=== PATIENT | male | born 1950 | race Caucasian/White ===

== ENCOUNTER 2016-09-10 14:37 | Inpatient (IN) | payer MEDICARE, OTHER ==
[2016-09-10] VITALS (8 sets, daily range): BP systolic 131–161; BP diastolic 84–103
[~2016-09-10] VITALS: Ht 177.8 cm; Wt 93.2 kg
[~2016-09-10 14:37] MED LIST: ASP81TEC PO; ATOR80TA PO; DOXY-233 PO; LISI1TAB6 PO; NFNEB10T PO
--- NOTE | 2016-09-10 14:55 | Diagnostic Imaging Report ---
PROCEDURE: CT head without contrast. TECHNIQUE: Multiple contiguous axial images were obtained through the brain without the use of intravenous contrast. INDICATION: Confusion . FINDINGS: There is no intracranial hemorrhage, edema or mass effect. The brain parenchyma appears unremarkable. No hydrocephalus. The visualized portions of the orbits and paranasal sinuses appear unremarkable. IMPRESSION: Unremarkable study. Dictated by: Dictated on workstation # [id number]
[2016-09-10 14:57] LABS: BASOPHILS % (AUTO) 0 % (0-10); EOSINOPHILS % (AUTO) 0 % (0-10); LYMPHOCYTES # (AUTO) 1.3 X 10^3 (1.0-4.0); LYMPHOCYTES % (AUTO) 14 % (12-44); MEAN CORPUSCULAR HEMOGLOBIN 31 PG (25-34); MEAN CORPUSCULAR HGB CONC 35 G/DL (32-36); MEAN CORPUSCULAR VOLUME 90 FL (80-99); MEAN PLATELET VOLUME 9.2 FL (7.4-10.4); MONOCYTES # (AUTO) 0.7 X 10^3 (0.0-1.0); MONOCYTES % (AUTO) 8 % (0-12); NEUTROPHILS # (AUTO) 7.2 X 10^3 (1.8-7.8); NEUTROPHILS % (AUTO) 78 % (42-75); PLATELET COUNT 352 10^3/uL (130-400); RED BLOOD COUNT 4.86 10^6/uL (4.35-5.85); RED CELL DISTRIBUTION WIDTH 12.2 % (10.0-14.5); WHITE BLOOD COUNT 9.2 10^3/uL (4.3-11.0)
--- NOTE | 2016-09-10 14:58 | ED Neurological Problem ---
General Chief Complaint: Neuro-Stroke Like Symptoms Stated Complaint: STROKE Nursing Triage Note: PT ARRIVED VIA EMS. REPORTS GOING UNRESPONSIVE WHILE ON THE PHONE WITH SOMEONE AT 1550 AT HOME. Nursing Sepsis Screen: No Definite Risk Source: patient Exam Limitations: no limitations History of Present Illness Time seen by provider: 14:51 Initial Comments Patient was talking on the phone to someone at 1350 when the person on the other line noticed that he was not talking anymore. The person then called his coworkers who went in to check on the patient. They found the patient awake alert sitting in chair but verbally unresponsive. There was no seizure activity noted. EMS was summoned. EMS found the patient awake alert but with difficulty speaking. He wasn't moderately hypertensive in route with a blood glucose of 120. On arrival to the emergency department he is anxious but in no obvious distress. He has noted aphasia on arrival. He was emergently transported to the CT scanner. Full examination and interview were conducted when patient returned from CAT scan. Allergies and Home Medications Allergies Coded Allergies: No Known Drug Allergies (Unverified , 07/05/12) Home Medications Aspirin 81 Mg Tabec 81 MG PO (Reported) Atorvastatin Calcium 80 Mg Tablet 1 EACH PO DAILY (Reported) Hctz/Lisinopril 1 Each Tablet 1 EACH PO DAILY (Reported) Nebivolol Hcl 10 Mg Tablet 1 EACH PO DAILY (Reported) Constitutional: no symptoms reported Respiratory: no symptoms reported Cardiovascular: no symptoms reported Gastrointestinal: no symptoms reportedNo abdominal pain Musculoskeletal: back pain Psychiatric/Neurological: See HPI Hematologic/Lymphatic: No Symptoms Reported All Other Systems Reviewed Negative Unless Noted: Yes Past Fnnpkbp-Rndzwy-Motsnj Hx Patient Social History Alcohol Use: Regular Use Smoking Status: Never a Smoker Recent Foreign Travel: No Contact w/Someone Who Travel: No Recent Infectious Disease Expo: No Recent Hopitalizations: No Immunizations Up To Date Date of Influenza Vaccine: May 30, 2011 Respiratory Hx Respiratory Disorders: No Cardiovascular Hx Cardiac Disorders: Yes Cardiac Disorders: High Cholesterol, Hypertension Neurological Hx Neurological Disorders: No Genitourinary Hx Genitourinary Disorders: No Gastrointestinal Hx Gastrointestinal Disorders: No Musculoskeletal Hx Musculoskeletal Disorders: No Endocrine Hx Endocrine Disorders: No HEENT HX ENT Disorders: No Cancer Hx Cancer: No Psychosocial Hx Psychiatric Problems: No Reviewed Nursing Assessment Reviewed/Agree w Nursing PMH: Yes Physical Exam Vital Signs Vital Sign - Last 12Hours 1/12/17 1/12/17 14:37 15:25 Temp 98.9 Pulse 120 Resp 16 B/P 154/95 Pulse Ox 96 O2 Delivery Room Air O2 Flow Rate 2 Capillary Refill : Less Than 3 Seconds General Appearance: WD/WN mild distress HEENT: PERRL/EOMI pharynx normal Neck: suppleNo carotid bruit Respiratory: lungs clear normal breath sounds Cardiovascular: no edema tachycardia Peripheral Pulses: 2+ Dorsalis Pedis (R), 2+ Left Dors-Pedis (L), 2+ Radial Pulses (R), 2+ Radial Pulses (L) Gastrointestinal: non tender soft Extremities: normal inspection normal capillary refill Neurologic/Psychiatric: historical interpreter II-XII nml as tested no motor/sensory deficits alert normal mood/affect other (see stroke scale) Crainal Nerves: PERRL Motor/Sensory: no motor deficit Skin: normal color warm/dry Stroke Onset of Symptoms Date of Onset of Symptoms: Sep 10, 2016 Time of Symptom Onset: 14:50 Onset of Symptoms: Yes Symptoms onset unknown: No NIH Stroke Scale Assessment Select: Post CT Level of Consciousness: 0=Alert LOC Commands: 0=Performs both tasks Gaze: 0=Normal Visual Moreira: 0=No visual loss Facial Movement (Facial Paresi: 0=Normal symmetrical mnt Motor Function-Arms Right: 0=No drift Motor Function-Arms Left: 0=No drift Motor Function-Legs Right: 0=No drift Motor Function-Legs Left: 0=No drift Limb Ataxia: 0=Absent Sensory: 0=Normal:no loss Best Language: 1=Mild to moderat aphasia Dysarthria: 0=Normal Extinction & Inattention: 0=No abnormality Stroke Thrombolytic Exclusion Age 18 or Over: Yes Acute intenal hemorrhage: No History of CVA: No Uncontrolled Coagulation Defec: No Intracranial Hemorrhage: No Severe Hypertension: No GI or Bleed: No Subarachnoid Hemorrhage: No Intracranial Neoplasm/Aneurysm: No Oral Anticoagulants: No Surgery or Trauma: No Puncture of Non-Compressible V: No Recent CPR: No Diabetic Hemorrhagic Retinopat: No Organ Biopsy: No Glucose: No Significant Hepatic Dysfunctio: No NIH Stoke Scale >22: No Bacterial Endocarditis: No Pericarditis: No Improving Symptoms: No Platelets: No TPA Contraindication: No IV - TPa Received IV - TPa Procedure Performed?: Yes IV - TPa Date: Sep 10, 2016 IV - TPa Time: 15:10 Progress/Results/Core Measures Results/Orders Lab Results Laboratory Tests Test 09/10/16 14:49 Range/Units Activated Partial Thromboplast Time 32 24-35 SEC Alanine Aminotransferase (ALT/SGPT) 25 0-55 U/L Albumin 4.2 3.2-4.5 G/DL Alkaline Phosphatase 63 40-136 U/L Anion Gap 11 5-14 MMOL/L Aspartate Amino Transf (AST/SGOT) 20 5-34 U/L BUN/Creatinine Ratio 18 Basophils # (Auto) 0.0 0.0-0.1 10^3/uL Basophils (%) (Auto) 0 0-10 % Blood Urea Nitrogen 16 7-18 MG/DL Calcium Level 9.2 8.5-10.1 MG/DL Carbon Dioxide Level 26 21-32 MMOL/L Chloride Level 99 98-107 MMOL/L Creatinine 0.89 0.60-1.30 MG/DL Eosinophils # (Auto) 0.0 0.0-0.3 10^3/uL Eosinophils (%) (Auto) 0 0-10 % Estimat Glomerular Filtration Rate > 60 Glucose Level 106 H 70-105 MG/DL Hematocrit 44 40-54 % Hemoglobin 15.1 13.3-17.7 G/DL INR Comment 0.9 0.8-1.4 Lymphocytes # (Auto) 1.3 1.0-4.0 X 10^3 Lymphocytes (%) (Auto) 14 12-44 % Magnesium Level 2.1 1.8-2.4 MG/DL Mean Corpuscular Hemoglobin 31 25-34 PG Mean Corpuscular Hemoglobin Concent 35 32-36 G/DL Mean Corpuscular Volume 90 80-99 FL Mean Platelet Volume 9.2 7.4-10.4 FL Monocytes # (Auto) 0.7 0.0-1.0 X 10^3 Monocytes (%) (Auto) 8 0-12 % Neutrophils # (Auto) 7.2 1.8-7.8 X 10^3 Neutrophils (%) (Auto) 78 H 42-75 % Platelet Count 352 130-400 10^3/uL Potassium Level 3.6 3.6-5.0 MMOL/L Prothrombin Time 12.3 12.2-14.7 SEC Red Blood Count 4.86 4.35-5.85 10^6/uL Red Cell Distribution Width 12.2 10.0-14.5 % Serum Alcohol < 10 <10 MG/DL Sodium Level 136 135-145 MMOL/L Total Bilirubin 0.4 0.1-1.0 MG/DL Total Protein 7.2 6.4-8.2 G/DL Troponin I < 0.30 <0.30 NG/ML White Blood Count 9.2 4.3-11.0 10^3/uL My Orders Orders-DERIK QUINONES MD Ct Head Wo (09/10/16 14:39) Cbc With Automated Diff (09/10/16 14:39) Magnesium (09/10/16 14:39) Ekg Tracing (09/10/16 14:39) Cardiac Profile 1 (09/10/16 14:39) Comprehensive Metabolic Panel (09/10/16 14:39) Protime With Inr (09/10/16 14:39) Partial Thromboplastin Time (09/10/16 14:39) O2 (09/10/16 14:39) Monitor-Rhythm Ecg Trace Only (09/10/16 14:39) Saline Lock/Iv-Start (09/10/16 14:39) Alcohol (09/10/16 14:59) Alteplase (Activase) (Activase Injection (09/10/16 14:59) Alteplase (Activase) (Activase Injection (09/10/16 15:15) Post Thrombolytic Adminstratio (09/10/16 15:14) Alteplase (Activase) (Activase Injection (09/10/16 15:15) Post Thrombolytic Adminstratio (09/10/16 15:14) Chest 1 View, Ap/Pa Only (09/10/16 15:20) Medications Given in ED Current Medications Medications Dose Ordered Sig/Tuan Route Start Time Stop Time Status Last Admin Dose Admin Alteplase, Recombinant 8.2 mg ONCE ONCE IV 09/10/16 15:15 09/10/16 15:17 DC 09/10/16 15:19 8.2 MG Alteplase, Recombinant 73.6 mg UD ONCE IV 09/10/16 15:15 09/10/16 15:17 DC 09/10/16 15:19 73.6 MG Vital Signs/I&O Vital Sign - Last 12Hours 09/10/16 09/10/16 14:37 15:25 Temp 98.9 Pulse 120 Resp 16 B/P 154/95 Pulse Ox 96 O2 Delivery Room Air Nasal Cannula O2 Flow Rate 2 Progress Note : Time: 15:11 Progress Note Patient still having moderate to severe aphasia. No contraindications to TPA. Dr. Figueroa ([facility] neurology) was consult that it advises TPA per protocol. ECG Initial ECG Impression Time: 14:56 Initial ECG Rhythm: S.Tach Initial ECG Intervals: Normal Initial ECG Impression: Nonspecific Changes Comment Right bundle-branch block and left anterior fascicular block Diagnostic Imaging Comments CT scan shows nothing acute Date of Exam: 09/10/16 CT HEAD WO PROCEDURE: CT head without contrast. TECHNIQUE: Multiple contiguous axial images were obtained through the brain without the use of intravenous contrast. INDICATION: Confusion . FINDINGS: There is no intracranial hemorrhage, edema or mass effect. The brain parenchyma appears unremarkable. No hydrocephalus. The visualized portions of the orbits and paranasal sinuses appear unremarkable. IMPRESSION: Unremarkable study. Critical Care Note Critical Care Total Time (minutes) Total critical care time so this patient was 45 minutes Departure Communication Time/Spoke to Admitting Phy: 15:32 Communication I spoke with Dr. Martin who agrees to admit Progress Notes 1545: Awake alert. TPA bolus given remainder TPA infusing. Aphasia has resolved. Stroke scale 0 Impression Impression: Primary Impression: Cerebrovascular accident due to cerebral artery occlusion Disposition: ADMITTED INPATIENT Condition: Stable Decision to Admit Reason: Admit from ER (General) Decision to Admit/Date: Sep 10, 2016 Time/Decision to Admit Time: 15:13 Departure-Patient Inst. Referrals: KAYLA ESPINOSA MD (PCP/Family) Primary Care Physician DERIK QUINONES MD Sep 10, 2016 14:58
[2016-09-10] MEDS ORDERED: ALTEPLASE 100 MG/VIAL (ACTIVASE) IV ONE ×3 (14:59→15:15)
[2016-09-10 15:06] LABS: INR 0.9 (0.8-1.4); PROTHROMBIN TIME PATIENT 12.3 SEC (12.2-14.7)
[2016-09-10 15:13] LABS: ANION GAP 11 MMOL/L (5-14); BLOOD UREA NITROGEN 16 MG/DL (7-18); CARBON DIOXIDE 26 MMOL/L (21-32); CHLORIDE 99 MMOL/L (98-107); CREATININE SERUM 0.89 MG/DL (0.60-1.30); POTASSIUM 3.6 MMOL/L (3.6-5.0); SODIUM 136 MMOL/L (135-145)
[2016-09-10 15:14] LABS: ALANINE AMINOTRANSFERASE 25 U/L (0-55); ALBUMIN 4.2 G/DL (3.2-4.5); ASPARTATE AMINO TRANSFERASE 20 U/L (5-34); BILIRUBIN,TOTAL 0.4 MG/DL (0.1-1.0); BUN/CREATININE RATIO 18; CALCIUM 9.2 MG/DL (8.5-10.1); GFR ESTIMATED > 60; GLUCOSE 106 MG/DL (70-105); MAGNESIUM 2.1 MG/DL (1.8-2.4); TOTAL PROTEIN 7.2 G/DL (6.4-8.2)
--- NOTE | 2016-09-10 15:35 | Diagnostic Imaging Report ---
Indication: Altered mental status Portable chest: 3:30 PM Findings: The heart size and pulmonary vascularity are normal. The lungs are clear. There are no effusions or pneumothoraces. Impression: No acute abnormalities of the chest. Dictated by: Dictated on workstation # [id number]
[2016-09-10] MEDS ORDERED: CYCL10TA9 PO (16:46)
[2016-09-10] MEDS ORDERED: LISI1TAB10 PO (16:46)
[2016-09-10] MEDS ORDERED: AMLO2.5T PO (16:46)
[2016-09-10] MEDS ORDERED: INDO50CA PO (16:46)
[2016-09-10] MEDS ORDERED: LIFI1DRO OU (16:47)
[2016-09-10] MEDS ORDERED: CATHETER FLUSH 10 ML SYR IV PRN (18:00)
[2016-09-10] MEDS: CATHETER FLUSH 10 ML SYR IV SCH (21:19)
[2016-09-11] VITALS (16 sets, daily range): BP systolic 119–161; BP diastolic 77–134
[2016-09-11 04:40] LABS: BASOPHILS % (AUTO) 0 % (0-10); EOSINOPHILS # (AUTO) 0.1 10^3/uL (0.0-0.3); EOSINOPHILS % (AUTO) 1 % (0-10); LYMPHOCYTES # (AUTO) 1.9 X 10^3 (1.0-4.0); LYMPHOCYTES % (AUTO) 22 % (12-44); MEAN CORPUSCULAR HEMOGLOBIN 31 PG (25-34); MEAN CORPUSCULAR HGB CONC 34 G/DL (32-36); MEAN CORPUSCULAR VOLUME 90 FL (80-99); MEAN PLATELET VOLUME 9.5 FL (7.4-10.4); MONOCYTES # (AUTO) 0.9 X 10^3 (0.0-1.0); MONOCYTES % (AUTO) 10 % (0-12); NEUTROPHILS # (AUTO) 5.8 X 10^3 (1.8-7.8); NEUTROPHILS % (AUTO) 66 % (42-75); PLATELET COUNT 356 10^3/uL (130-400); RED BLOOD COUNT 4.66 10^6/uL (4.35-5.85); RED CELL DISTRIBUTION WIDTH 12.4 % (10.0-14.5); WHITE BLOOD COUNT 8.8 10^3/uL (4.3-11.0)
[2016-09-11 04:56] LABS: ANION GAP 12 MMOL/L (5-14); BLOOD UREA NITROGEN 16 MG/DL (7-18); BUN/CREATININE RATIO 20; CALCIUM 8.7 MG/DL (8.5-10.1); CARBON DIOXIDE 24 MMOL/L (21-32); CHLORIDE 103 MMOL/L (98-107); GFR ESTIMATED > 60; GLUCOSE 97 MG/DL (70-105); PHOSPHORUS 3.7 MG/DL (2.3-4.7); POTASSIUM 3.4 MMOL/L (3.6-5.0); SODIUM 139 MMOL/L (135-145)
[2016-09-11] MEDS ORDERED: KCL 20 MEQ TAB (K-DUR) PO ONE (05:45)
[2016-09-11] MEDS: CATHETER FLUSH 10 ML SYR IV SCH ×2 (05:56→15:33)
[2016-09-11] MEDS ORDERED: KCL 20 MEQ TAB (K-DUR) PO SCH (06:00)
[2016-09-11] MEDS ORDERED: POTASSIUM CL 10MEQ/50ML IVPB 50 ML IV SCH (06:00)
[2016-09-11] MEDS ORDERED: MAGNESIUM 1 GM/100 ML IVPB 100 ML IV SCH (06:00)
--- NOTE | 2016-09-11 06:43 | Pulmonary Consultation ---
History of Present Illness History of Present Illness Date of Consultation 09/11/16 06:35 Date of Admission History of Present Illness 66yo presented to ED secondary to stroke like symptoms. Pt was talking on phone and then suddenly was not talking anymore. Coworkers went to check on patient and found him awake alert sitting in chair but verbally unresponsive.On arrival to the emergency department he is anxious but in no obvious distress. He has noted aphasia on arrival. Pt was given TPA in ED and is now doing much better. NIH is now 0. No complications noted. NO hx of CVA in the past. I am consulted for ICU management. Allergies and Home Medications Allergies Coded Allergies: No Known Drug Allergies (Unverified , 07/05/12) Home Medications Amlodipine Besylate 2.5 Mg Tablet 2.5 MG PO DAILY (Reported) Aspirin 81 Mg Tabec 81 MG PO (Reported) Atorvastatin Calcium 80 Mg Tablet 80 MG PO DAILY (Reported) Cyclobenzaprine HCl 10 Mg Tablet 10 MG PO TID PRN PRN MUSCLE SPASMS (Reported) Indomethacin 50 Mg Capsule 50 MG PO TID PRN PRN PAIN (Reported) Lifitegrast 1 Each Droperette 1 DROP OU Q12H (Reported) Lisinopril/Hydrochlorothiazide 1 Each Tablet 1 TAB PO DAILY (Reported) Past Kgvtyel-Iskhiq-Cqpwdg Hx Patient Social History Alcohol Use: Denies Use Recreational Drug Use: No Smoking Status: Never a Smoker Recent Foreign Travel: No Contact w/Someone Who Travel: No Recent Infectious Disease Expo: No Recent Hopitalizations: No Physical Abuse Screen: No Sexual Abuse: No Immunizations Up To Date Date of Influenza Vaccine: May 30, 2017 Seasonal Allergies Seasonal Allergies: No Respiratory Hx Respiratory Disorders: No Cardiovascular Hx Cardiac Disorders: Yes Cardiac Disorders: High Cholesterol, Hypertension Neurological Hx Neurological Disorders: No Genitourinary Hx Genitourinary Disorders: No Gastrointestinal Hx Gastrointestinal Disorders: No Musculoskeletal Hx Musculoskeletal Disorders: No Endocrine Hx Endocrine Disorders: No HEENT HX ENT Disorders: No Cancer Hx Cancer: No Psychosocial Hx Psychiatric Problems: No Blood Transfusions Adverse Reaction to a Blood Tr: No Reviewed Nursing Assessment Reviewed/Agree w Nursing PMH: Yes Review of Systems Constitutional: : Malaise: WeaknessNo: Chills, Fever, Other, Sweats Eyes: No: Conjunctivae inflammation, Eyelid inflammation, Other, Pain, Redness , Vision change ENT: No: Ear discharge, Ear pain, Mouth pain, Mouth swelling, Nose congestion, Nose discharge, Nose pain, Other, Throat pain, Throat swelling Respiratory: No: Cough, Dry, Hemoptysis, Other, Pleuritic Pain, SOB with excertion, Shortness of breath, Sputum, Wheezing, Wheezing Cardiovascular: No: Chest Pain, Edema, Lt Headedness, Orthopnea, Other, Palpitations, Paroxysmal Noc. Dyspnea Gastrointestinal: No: Abdominal Pain, Constipation, Diarrhea, Hematochezia, Melena, Nausea, Other, Vomiting Genitourinary: No Dysuria, No Frequency, No Incontinence, No Hematuria, No Retention, No Other Musculoskeletal: No: arm pain, back pain, foot pain, hand pain, leg pain, neck pain, other, shoulder pain Skin: No: Bruising, Jaundice, Lesions, Other, Rash Neurological: : Change in speech: Confusion: Incoordination: Weakness Exam Exam Vital Signs Date Time Temp Pulse Resp B/P Pulse Ox O2 Delivery O2 Flow Rate FiO2 09/11/16 06:00 82 134/83 95 Room Air 09/11/16 05:00 84 19 126/78 92 Room Air 09/11/16 04:00 Room Air 09/11/16 04:00 Room Air 09/11/16 04:00 80 13 119/85 96 Room Air 09/11/16 03:00 81 14 133/84 91 Room Air 09/11/16 02:00 84 12 120/77 94 Room Air 09/11/16 01:00 90 21 133/87 91 Room Air 09/11/16 01:00 87 09/11/16 00:00 Room Air 09/11/16 00:00 97.8 09/11/16 00:00 89 12 126/92 94 Room Air 09/10/16 23:00 98 14 132/84 95 Room Air 09/10/16 22:00 91 14 138/95 93 Room Air 09/10/16 21:00 92 145/95 93 Room Air 09/10/16 20:00 97.9 09/10/16 20:00 Room Air 09/10/16 20:00 101 142/99 92 Room Air 09/10/16 19:00 108 161/103 95 Room Air 09/10/16 19:00 103 09/10/16 19:00 97.2 09/10/16 18:00 104 135/93 97 Room Air 09/10/16 17:41 Nasal Cannula 2.00 09/10/16 17:00 146 17 145/94 92 Room Air 09/10/16 16:35 98.4 121 18 96 Nasal Cannula 2 09/10/16 16:30 110 20 131/96 97 09/10/16 15:25 Nasal Cannula 2 09/10/16 14:37 98.9 120 16 154/95 96 Room Air I & O 09/11/16 07:00 Intake Total 850 ml Output Total 1850 ml Balance -1000 ml General Appearance: No Apparent Distress WD/WN HEENT: PERRL/EOMI Normal ENT Inspection Pharynx Normal Neck: Full Range of Motion Normal Inspection Non Tender Supple Respiratory: Lungs Clear Normal Breath Sounds No Accessory Muscle Use No Respiratory Distress Cardiovascular: Regular Rate, Rhythm No Edema No Gallop Capillary Refill: Less Than 3 Seconds Peripheral Pulses: 2+ Dorsalis Pedis (R), 2+ Left Dors-Pedis (L), 2+ Radial Pulses (R), 2+ Radial Pulses (L) Gastrointestinal: non tender soft Neurologic/Psychiatric: Alert Oriented x3 Skin: Normal Color Warm/Dry Results Lab Laboratory Tests 09/10/16 14:49 09/11/16 03:55 Assessment/Plan Assessment/Plan -Acute CVA s/p TPA -Start Plavix - 24hrs after TPA given -Check MRI later today -swallow evaluation -Check echocardiogram and bilateral carotid dopplers Clinical Quality Measures DVT/VTE Risk/Contraindication: Risk Factor Score Per Nursin RFS Level Per Nursing on Admit: 2=Moderate Stroke: Date of last known well: Sep 10, 2016 Time of last known well: 14:50 Symptoms onset unknown: No STEFFANY TERRY DO Sep 11, 2016 06:43
--- NOTE | 2016-09-11 08:53 | Diagnostic Imaging Report ---
INDICATION: Shortness of breath Portable chest 2:47 AM There is some atelectasis at the left lung base. Right lung is clear. Heart size and pulmonary vascularity are normal. IMPRESSION: Left basilar atelectasis has increased since the previous day. Dictated by: Dictated on workstation # [id number]
--- NOTE | 2016-09-11 08:57 | Diagnostic Imaging Report ---
PROCEDURE: US Carotid Duplex Bilateral. TECHNIQUE: Multiple real-time grayscale images were obtained over the carotid arteries in various projections bilaterally. Additional duplex Doppler and color Doppler images were also obtained. INDICATION: Difficulty speaking. FINDINGS: There is mild atherosclerotic plaque along the carotid bifurcation bilaterally. Color Doppler demonstrates patent internal, external, and common carotid arteries on both sides. The vertebral arteries demonstrate antegrade flow on both sides. Peak systolic velocities in the left internal carotid artery are 77, 85, and 78 cm/s from proximal/ distal, and peak systolic velocities in the right ICA are from 55, 64, and 89 cm/s. ICA/ CCA ratios are within normal bilaterally. Estimated underlying stenosis is in the range of 0 to 40% bilaterally. IMPRESSION: Mild atherosclerotic plaque along the carotid bifurcation bilaterally with no underlying significant stenosis seen. Dictated by: Dictated on workstation # [id number]
[2016-09-11] MEDS ORDERED: NEO/POLY/BAC (NEOSPORIN) OINT 15 GM TUBE TOP SCH (09:00)
--- NOTE | 2016-09-11 12:22 | Consultation-Cardiology ---
HPI-Cardiology Cardiology Consultation: Date of Consultation 09/11/16 Date of Admission Attending Physician Harry Poe MD Admitting Physician Britton Duncan MD Consulting Physician Harry POE MD HPI: Chief Complaint: Acute stroke This is a 66-year-old gentleman with history of hypertension and no cardiac history. He presents with acute stroke yesterday and was given thrombolytics. No residual after thrombolytics. No complaints of chest pain, shortness of breath, palpitations, syncopal, near syncope. Review of Systems-Cardiology Review of Systems Constitutional: No As described under HPI, No no symptoms reported, No chills, No fever, No lightheadedness, No malaise, No tiredness, No weight loss, No weight gain, No other Eyes: No As described under HPI, No no symptoms reported, No blindness, No blurred vision, No contact lenses, No drainage, No decreased acuity, No foreign body sensation, No glasses, No inflammation, No pain, No photophobia, No previous injury, No shadows, No tunnel vision, No other, No vision change Ears/Nose/Throat: No As described under HPI, No no symptoms reported, No chronic hearing loss, No epistaxis, No ear discharge, No ear pain, No loose teeth, No mouth pain, No mouth swelling, No nasal drainage, No nose pain, No recent hearing loss, No throat pain, No throat swelling, No ulcerations, No other Respiratory: No no symptoms reported, No As described under HPI, No cough, No orthopnea, No shortness of breath, No SOB with excertion, No SOB at rest, No stridor, No wheezing, No other Cardiovascular: No no symptoms reported, No As described under HPI, No chest pain, No edema, No irregular heart rate, No lightheadedness, No palpitations, No syncope, No other Gastrointestinal: No no symptoms reported, No As described under HPI, No abdomen distended, No abdominal pain, No blood streaked bowels, No constipation , No diarrhea, No difficulty swallowing, No nausea, No poor appetite, No poor fluid intake, No rectal bleeding, No vomiting, No other, No nausea/vomiting/ diarrhea, No stool coloration changes Genitourinary: No no symptoms reported, No As described under HPI, No burning, No dysuria, No discharge, No frequency, No flank pain, No hematuria, No incontinence, No pain, No urgency, No other, No urine frequency changes, No urine coloration changes Musculoskeletal: No no symptoms reported, No As describe under HPI, No back pain, No gout, No joint pain, No joint swelling, No muscle pain, No muscle stiffness, No neck pain, No other Skin: No no symptoms reported, No As described under HPI, No change in color, No change in hair/nails, No dryness, No lesions, No lumps, No rash, No other, No skin related problems, No ulcerations, No rash on exposed areas, No ulcerations on exposed areas Psychiatric/Neurological: other (Dysarthria, aphasia) Hematologic: No no symptoms reported, No As described under HPI, No anemia, No blood clots, No easy bleeding, No easy bruising, No swollen glands, No other, No bleeding abnormalities All Other Systems Reviewed Negative Unless Noted: Yes OAY-Lcvoet-Qpvfdm Hx Patient Social History Alcohol Use: Denies Use Recreational Drug Use: No Smoking Status: Never a Smoker Recent Foreign Travel: No Recent Infectious Disease Expo: No Physical Abuse Screen: No Sexual Abuse: No Immunizations Up To Date Date of Influenza Vaccine: May 30, 2017 Past Medical History PMH As described under Assessment. Allergies and Home Medications Allergies Coded Allergies: No Known Drug Allergies (Unverified , 07/05/12) Home Medications Amlodipine Besylate 2.5 Mg Tablet 2.5 MG PO DAILY (Reported) Aspirin 81 Mg Tabec 81 MG PO (Reported) Atorvastatin Calcium 80 Mg Tablet 80 MG PO DAILY (Reported) Cyclobenzaprine HCl 10 Mg Tablet 10 MG PO TID PRN PRN MUSCLE SPASMS (Reported) Indomethacin 50 Mg Capsule 50 MG PO TID PRN PRN PAIN (Reported) Lifitegrast 1 Each Droperette 1 DROP OU Q12H (Reported) Lisinopril/Hydrochlorothiazide 1 Each Tablet 1 TAB PO DAILY (Reported) Physical Exam-Cardiology Physical Exam Vital Signs/I&O Vital Sign - Last 12Hours 09/11/16 09/11/16 09/11/16 09/11/16 01:00 01:00 02:00 03:00 Pulse 87 90 84 81 Resp 21 12 14 B/P 133/87 120/77 133/84 Pulse Ox 91 94 91 O2 Delivery Room Air Room Air Room Air 1/09/11/16 09/11/16 09/11/16 04:00 04:00 04:00 05:00 Pulse 80 84 Resp 13 19 B/P 119/85 126/78 Pulse Ox 96 92 O2 Delivery Room Air Room Air Room Air Room Air 09/11/16 09/11/16 09/11/16 09/11/16 06:00 07:00 08:00 08:45 Temp 98.8 Pulse 82 85 B/P 134/83 Pulse Ox 95 O2 Delivery Room Air Room Air Intake and Output 09/11/16 00:00 Intake Total 200 ml Output Total 1500 ml Balance -1300 ml Capillary Refill : Less Than 3 Seconds Constitutional: No appears stated age, No AAO x 3, No apparent distress, No PERRL, No well-developed, No well-nourished, No other HEENT: No PERRL, No normal ENT inspection, No TMs normal, No pharynx normal, No scleral icterus (R), No scleral icterus (L), No pale conjunctivae (R), No pale conjunctivae (L), No photophobia, No TM abnormal (R), No TM abnormal (L), No pharyngeal erythema, No tonsillar exudate, No other, No discharge, No EOMI, No hearing is well preserved, No hard of hearing, No oral hygience is good, No ulceration, No xanthelasmas are seen Neck: No non-tender, No full range of motion, No supple, No normal inspection, No carotid bruit, No limited range of motion, No lymphadenopathy (R), No lymphadenopathy (L), No tender lateral, No tender midline, No thyromegaly, No other, No carotid pulses are 2 + bilaterally, No with good upstrokes Respiratory: No accessory muscle use, No respiratory distress, No chest tender , No chest expansion is symmetric, No chest is bilaterally symmetric, No lungs clear to percussion, No lungs clear to auscultation, No crackles, No rhonchi, No rales, No stridor, No wheezing, No pleural rub, No other Cardiovascular: No regular rate-rhythm, No irregularly irregular, No extra beats, No parasternal heave is noted, No JVD, No edema, No bradycardia, No tachycardia, No point of maximal impulse, No cardiac thrills are palpable, No S1 and S2, No gallop/S3, No gallop/S4, No diastolic murmur, No systolic murmur, No friction rub, No click, No other Gastrointestinal: No tender, No soft, No round, No distended, No pulsatile mass , No organomegaly, No guarding, No rebound, No tenderness, No hernia, No mass, No audible bowel sounds, No abnormal bowel sounds, No abdominal bruits, No spleenomegaly, No other Rectal: deferred Extremities: No normal range of motion, No non-tender, No normal inspection, No pedal edema, No calf tenderness, No normal capillary refill, No pelvis stable , No calf tenderness, No inflammation, No pedal edema, No slow capillary refill , No swelling, No other, No abrasion, No clubbing, No cyanosis, No ecchymosis, No laceration, No no lower extremity edema bilateral, No significant edema, No tenderness, No wound Neurologic/Psychiatric: no motor/sensory deficits alert normal mood/affect oriented x 3 Skin: No normal color, No warm/dry, No cyanosis, No cool, No diaphoresis, No damp, No ecchymosis, No jaundice, No mottled, No pallor, No rash, No tattoos/ piercings, No ulcerations, No rash on exposed areas, No ulcerations on exposed areas, No other Data Review Labs Laboratory Tests 09/10/16 14:49: Activated Partial Thromboplast Time 32, Alanine Aminotransferase (ALT/SGPT) 25, Albumin 4.2, Alkaline Phosphatase 63, Anion Gap 11, Aspartate Amino Transf (AST/ SGOT) 20, BUN/Creatinine Ratio 18, Basophils # (Auto) 0.0, Basophils (%) (Auto) 0, Blood Urea Nitrogen 16, Calcium Level 9.2, Carbon Dioxide Level 26, Chloride Level 99, Creatinine 0.89, Eosinophils # (Auto) 0.0, Eosinophils (%) (Auto) 0, Estimat Glomerular Filtration Rate > 60, Glucose Level 106H, Hematocrit 44, Hemoglobin 15.1, INR Comment 0.9, Lymphocytes # (Auto) 1.3, Lymphocytes (%) ( Auto) 14, Magnesium Level 2.1, Mean Corpuscular Hemoglobin 31, Mean Corpuscular Hemoglobin Concent 35, Mean Corpuscular Volume 90, Mean Platelet Volume 9.2, Monocytes # (Auto) 0.7, Monocytes (%) (Auto) 8, Neutrophils # (Auto) 7.2, Neutrophils (%) (Auto) 78H, Platelet Count 352, Potassium Level 3.6, Prothrombin Time 12.3, Red Blood Count 4.86, Red Cell Distribution Width 12.2, Serum Alcohol < 10, Sodium Level 136, Total Bilirubin 0.4, Total Protein 7.2, Troponin I < 0.30, White Blood Count 9.2 09/11/16 03:55: Anion Gap 12, BUN/Creatinine Ratio 20, Basophils # (Auto) 0.0, Basophils (%) ( Auto) 0, Blood Urea Nitrogen 16, Calcium Level 8.7, Carbon Dioxide Level 24, Chloride Level 103, Creatinine 0.80, Eosinophils # (Auto) 0.1, Eosinophils (%) ( Auto) 1, Estimat Glomerular Filtration Rate > 60, Glucose Level 97, Hematocrit 42, Hemoglobin 14.4, Lymphocytes # (Auto) 1.9, Lymphocytes (%) (Auto) 22, Magnesium Level 2.0, Mean Corpuscular Hemoglobin 31, Mean Corpuscular Hemoglobin Concent 34, Mean Corpuscular Volume 90, Mean Platelet Volume 9.5, Monocytes # (Auto) 0.9, Monocytes (%) (Auto) 10, Neutrophils # (Auto) 5.8, Neutrophils (%) (Auto) 66, Platelet Count 356, Potassium Level 3.4L, Red Blood Count 4.66, Red Cell Distribution Width 12.4, Sodium Level 139, White Blood Count 8.8, Phosphorus Level 3.7 ECG Impression ECG Initial ECG Rhythm: Normal Sinus A/P-Cardiology Assessment/Admission Diagnosis Acute stroke, hypertension, hyperlipidemia Plan Acute stroke - deferred treatment to primary team and Dr. Valencia. Status post tPA. Repeat CT scan pending. Normal EKG, telemetry overnight. If neurological workup is negative and the stroke is labeled as cryptogenic stroke; atrial fibrillation should be considered as one of the etiologies. Will recommend 30 day event monitor in that case on discharge. Telemetry echocardiogram is negative. Echocardiogram can be repeated with contrast and bubble study to rule out intracardiac shunting (can be done as outpatient as well). Once okay with primary team, antihypertensive medications can be restarted. Restart atorvastatin for hyperlipidemia. Clinical Quality Measures DVT/VTE Risk/Contraindication: Risk Factor Score Per Nursin RFS Level Per Nursing on Admit: 2=Moderate Stroke: Date of last known well: Sep 10, 2016 Time of last known well: 14:50 Symptoms onset unknown: Harry Monreal MD Sep 11, 2016 12:21 pm
--- NOTE | 2016-09-11 13:05 | Short Stay Summary-Hospitalist ---
HPI History of Present Illness: HPI/Chief Complaint Mr. Mtz is a 66-year-old white male who was in his usual state of health when he apparently had rather abrupt onset of expressive aphasia with mild confusion. This occurred reportedly around 1350 on the 12th while he was talking with a colleague at work. This was a phone conversation but they someone someone else at work because obviously something was wrong. EMS was summoned his fasting sugar was 120 and he is brought to the emergency room where he still exhibited expressive aphasia. There were no other reported neurologic deficits. CT scanning revealed no evidence for abnormality and he apparently received tPA sometime around 1530. Following that there is resolution of expressive aphasia and no neurologic deficits are reported by the patient who was alert oriented and articulate during our interview.he reports that he has been feeling well denies palpitations lightheadedness fatigue and denied any other neurologic symptoms. He reports memory issues but in closer questioning it is typically the time phenomenon with naming people that are not close to him. Past medical history significant for long-standing hypertension and hyperlipidemia with no known history of vascular disease. He's had no previous problems with TIAs. He reports that he had been taking a baby aspirin every other day as he is recently been on Naprosyn for about of lumbago which is now resolved. He denies any temr-gjq-jywvzqv medication usage. He has had no known past history of atrial fibrillation Date Seen 09/11/16 Attending Physician Harry Poe MD PCP Kayla Espinosa MD Referring Physician Date of Admission Sep 10, 2016 at 16:04 Home Medications & Allergies Home Medications Reviewed patient Home Medication Reconciliation Form Allergies Coded Allergies: No Known Drug Allergies (Unverified , 07/05/12) Past Zbkzhhc-Lvyvht-Ugtadn Hx Patient Social History Alcohol Use: Denies Use Recreational Drug Use: No Smoking Status: Never a Smoker Physical Abuse Screen: No Sexual Abuse: No Recent Foreign Travel: No Contact w/other who traveled: No Recent Hopitalizations: No Recent Infectious Disease Expo: No Immunizations Up To Date Date of Influenza Vaccine: May 30, 2017 Seasonal Allergies Seasonal Allergies: No Respiratory Hx Respiratory Disorders: No Cardiovascular Hx Cardiovascular Disorders: Yes Cardiac Disorders: High Cholesterol, Hypertension Neurological Hx Neurological Disorders: No Genitourinary Hx Genitourinary Disorders: No Gastrointestinal Hx Gastrointestinal Disorders: No Musculoskeletal Hx Musculoskeletal Disorders: No Endocrine Hx Endocrine Disorders: No HEENT HX ENT Disorders: No Cancer Hx Cancer: No Psychosocial Hx Psychiatric Problems: No Blood Transfusions Adverse Reaction to a Blood Tr: No Reviewed Nursing Assessment Reviewed/Agree w Nursing PMH: Yes Review of Systems Constitutional: no symptoms reported see HPI Cardiovascular: no symptoms reported see HPINo chest pain, No edema, No Hx of Intervention, No palpitations, No syncope, No vascular heart diseas, No other Psychiatric/Neurological: Denies No Symptoms Reported, See HPI AnxietyDenies Depressed, Denies Emotional Problems, Denies Headache, Denies Numbness, Denies Paresthesia, Denies Pre-Existing Deficit, Denies Seizure, Denies Tingling, Denies Tremors, Denies Weakness, Denies Other Physical Exam Physical Exam Vital Signs Vital Sign - Last 12Hours 09/10/16 09/10/16 14:37 15:25 Temp 98.9 Pulse 120 Resp 16 B/P 154/95 Pulse Ox 96 O2 Delivery Room Air O2 Flow Rate 2 Capillary Refill : Less Than 3 Seconds General Appearance: No Apparent Distress WD/WN Neck: Full Range of Motion Normal Inspection Non Tender Supple Carotid Bruit Respiratory: Chest Non Tender Lungs Clear Normal Breath Sounds No Accessory Muscle Use No Respiratory Distress Cardiovascular: Regular Rate, Rhythm No Edema No Gallop No JVD No Murmur Normal Peripheral Pulses Gastrointestinal: Normal Bowel Sounds No Organomegaly No Pulsatile Mass Non Tender Soft Neurologic/Psychiatric: Alert Oriented x3 No Motor/Sensory Deficits Normal Mood/Affect pulmonologist/intensivist II-XII Norm as Tested Skin: Normal Color Warm/Dry Lymphatic: No Adenopathy Comments Laboratory Tests 09/10/16 14:49: Activated Partial Thromboplast Time 32, Alanine Aminotransferase (ALT/SGPT) 25, Albumin 4.2, Alkaline Phosphatase 63, Anion Gap 11, Aspartate Amino Transf (AST/ SGOT) 20, BUN/Creatinine Ratio 18, Basophils # (Auto) 0.0, Basophils (%) (Auto) 0, Blood Urea Nitrogen 16, Calcium Level 9.2, Carbon Dioxide Level 26, Chloride Level 99, Creatinine 0.89, Eosinophils # (Auto) 0.0, Eosinophils (%) (Auto) 0, Estimat Glomerular Filtration Rate > 60, Glucose Level 106H, Hematocrit 44, Hemoglobin 15.1, INR Comment 0.9, Lymphocytes # (Auto) 1.3, Lymphocytes (%) ( Auto) 14, Magnesium Level 2.1, Mean Corpuscular Hemoglobin 31, Mean Corpuscular Hemoglobin Concent 35, Mean Corpuscular Volume 90, Mean Platelet Volume 9.2, Monocytes # (Auto) 0.7, Monocytes (%) (Auto) 8, Neutrophils # (Auto) 7.2, Neutrophils (%) (Auto) 78H, Platelet Count 352, Potassium Level 3.6, Prothrombin Time 12.3, Red Blood Count 4.86, Red Cell Distribution Width 12.2, Serum Alcohol < 10, Sodium Level 136, Total Bilirubin 0.4, Total Protein 7.2, Troponin I < 0.30, White Blood Count 9.2 09/11/16 03:55: Anion Gap 12, BUN/Creatinine Ratio 20, Basophils # (Auto) 0.0, Basophils (%) ( Auto) 0, Blood Urea Nitrogen 16, Calcium Level 8.7, Carbon Dioxide Level 24, Chloride Level 103, Creatinine 0.80, Eosinophils # (Auto) 0.1, Eosinophils (%) ( Auto) 1, Estimat Glomerular Filtration Rate > 60, Glucose Level 97, Hematocrit 42, Hemoglobin 14.4, Lymphocytes # (Auto) 1.9, Lymphocytes (%) (Auto) 22, Magnesium Level 2.0, Mean Corpuscular Hemoglobin 31, Mean Corpuscular Hemoglobin Concent 34, Mean Corpuscular Volume 90, Mean Platelet Volume 9.5, Monocytes # (Auto) 0.9, Monocytes (%) (Auto) 10, Neutrophils # (Auto) 5.8, Neutrophils (%) (Auto) 66, Platelet Count 356, Potassium Level 3.4L, Red Blood Count 4.66, Red Cell Distribution Width 12.4, Sodium Level 139, White Blood Count 8.8, Phosphorus Level 3.7 Results Results/Procedures Lab Laboratory Tests 09/10/16 14:49 09/11/16 03:55 Short Stay Diagnosis Discharge Diagnosis-Short Stay Admission Diagnosis 1. Left sided CVA involving Broca's speech area only and a right-handed white male. 2. CVA aborted post-TPA 3. History of hypertension 4. History of hyperlipidemia Final Discharge Diagnosis same as admission diagnosis Conclusion Plan Pt. was admitted to the intensive care unit for monitoring post-TPA. he had no further difficulty with speech reporting no headache or neurologic symptoms. He does have risk factors for vascular disease including hyperlipidemia and hypertension. He had been taking Naprosyn which may have contributed to his acute cerebral event and was advised to discontinue Naprosyn and all other nonsteroidal medication. Plavix 75 mg daily and a baby aspirin daily will be continued. Verbal report of his echo revealed no potential embolic sites with normal LV systolic function. Carotid Doppler evaluation revealed mild bilateral nonflow limiting disease. The patient will be continuing his home antihypertensive medication lisinopril and amlodipine as well as resuming atorvastatin today when he gets home and then every morning daily. I will see him back in the office in 2 weeks. Clinical Quality Measures DVT/VTE Risk/Contraindication: Risk Factor Score Per Nursin RFS Level Per Nursing on Admit: 2=Moderate Stroke: Date of last known well: Sep 10, 2016 Time of last known well: 14:50 Symptoms onset unknown: No KAYLA ESPINOSA MD Sep 11, 2016 13:05
[2016-09-11] MEDS ORDERED: CLOP75TA28 PO (13:13)
[2016-09-11] MEDS ORDERED: IOHEXOL 350 MG/ML 100 ML (OMNIPAQUE 350) VIAL IV ONE (14:45)
[2016-09-11] MEDS ORDERED: NS 100 ML (IVPB) BAG IV ONE (14:45)
[2016-09-11] MEDS ORDERED: CLOPIDOGREL 75 MG (PLAVIX) TABLET PO SCH (15:00)
[2016-09-11] MEDS ORDERED: HYDROCHLOROTHIAZIDE 25 MG (HCTZ) TAB PO SCH (15:30)
[2016-09-11] MEDS ORDERED: lisINopril 20 MG (ZESTRIL) TAB PO SCH (15:30)
--- NOTE | 2016-09-11 16:13 | Diagnostic Imaging Report ---
PROCEDURE: CT head with and without contrast. TECHNIQUE: Multiple contiguous axial images were obtained through the brain before and after the administration of intravenous contrast. INDICATION: Confusion, post-TPA. CORRELATION STUDY: 09/10/2016. FINDINGS: Ventricles and sulci appear unchanged. No abnormal areas of decreased attenuation to suggest edema. No midline shift or mass effect. There is no intracranial hemorrhage. On post contrast imaging, no abnormal intracranial enhancement. Intracranial vascular enhancement appears to be unremarkable as visualized on non-CTA sequence images. IMPRESSION: 1. Unremarkable pre and post contrast CT examination of the head. If further assessment is desired for potential stroke, MRI would be recommended. Dictated by: Dictated on workstation # [id number]
[2016-09-12] MEDS ORDERED: NON-FORMULARY MEDICATION 1 EA EA (Lisinopril/Hydrochlorothiazide (Lisinopril-Hctz 20-25 mg PO SCH (09:00)
[2016-09-12] MEDS ORDERED: HYDROCHLOROTHIAZIDE 25 MG (HCTZ) TAB PO SCH (09:00)
[2016-09-12] MEDS ORDERED: lisINopril 20 MG (ZESTRIL) TAB PO SCH (09:00)
--- NOTE | 2016-09-13 13:52 | ECHOCARDIOGRAPHY REPORT ---
PROCEDURE PHYSICIAN: MARIA ELENA POE DATE OF PROCEDURE: 09/10/2016 TWO DIMENSIONAL ECHOCARDIOGRAM REPORT PRIMARY PHYSICIAN: OTHER PHYSICIAN: REFERRING PHYSICIAN: Dr. Britton Duncan ORDERING PHYSICIAN: ATTENDING PHYSICIAN: Dr. Jeff Poe FAMILY PHYSICIAN: READING PHYSICIAN: INDICATION FOR THE PROCEDURE: Acute CVA. MEASUREMENTS DERIVED VALUES LV DIAMETER (LAX) NORMALS NORMALS Diastolic (3.6-5.2) Eject. Fract. (60%+/-6%) Systolic (2.3-3.9) Diastolic Vol. % Shortening (0.22-0.42) Systolic Vol. Aortic Root IVS THICKNESS Diastolic (0.6-1.1) LVPW THICKNESS Diastolic (0.6-1.1) LA DIAMETER Systolic (2.1-3.7) FINDINGS: 1. This is a technically difficult study. 2. Sinus rhythm. 3. Left atrial diameter is normal. 4. Aortic root dimensions are normal. 5. Left ventricular systolic function is preserved. Left ventricular ejection fraction is 60%. Mild concentric LVH is present. Diastolic intraventricular septal diameter is 1.3 cm. 6. There is no wall motion abnormality. 7. Right heart dimensions are normal. Right ventricular systolic function is preserved. 8. There is no evidence of pericardial effusion. 9. Mild diastolic dysfunction is present. 10. IVC diameter is 1.6 cm with no significant respiratory variation. VALVULAR STRUCTURE OF THE HEART: The mitral valve is within normal limits. There is no significant stenosis or regurgitation. There is trace tricuspid regurgitation with RVSP of 10 mmHg. The aortic valve is also not significantly diseased. The pulmonic valve is not well visualized. CONCLUSION: 1. LV and RV size and function is normal. 2. LV EF is normal. 3. No significant valvular heart disease. 4. Normal PA pressure. 5. Mild concentric LVH with mild diastolic dysfunction. Job ID: [id number] Dictated Date: 09/12/2016 14:26:42 [employer] Of [employer] Associate Date: 09/13/2016 13:45:27 / malik
== END 2016-09-11 15:50 | disposition home or self-care (01) | DRG 63 ==
LOC: EDUNIT# 14:37 → ER 14:38 → ICU 16:04
PROVIDERS: ADMIT Internal Medicine; ATTEND Internal Medicine Interventional Cardiology
DX: I63.50 Cerebral infarction due to unspecified occlusion or stenosis of unspecified cerebral artery (principal); R47.01 Aphasia; I10 Essential (primary) hypertension; E78.5 Hyperlipidemia, unspecified; E78.00 Pure hypercholesterolemia, unspecified; R27.8 Other lack of coordination; R53.1 Weakness; R41.0 Disorientation, unspecified
CPT/HCPCS: 36415; 70450; 70470; 71010; 80048; 80053; 80320; 83735; 84100; 84484; 85025; 85610; 85730; 93005; 93041; 93306; 93880; 96365

== ENCOUNTER → 2017-11-02 | Outpatient (CLI) | payer MEDICARE, OTHER ==
[~2017-11-02] MED LIST changes: +AMLO2.5T PO; +CLOP75TA28 PO; +CYCL10TA9 PO; +INDO50CA PO; +LIFI1DRO OU; +LISI1TAB10 PO
--- NOTE | 2017-11-02 19:26 | Diagnostic Imaging Report ---
PROCEDURE: MRI left upper extremity without contrast. TECHNIQUE: Multiplanar, multisequence non contrast-enhanced MRI of the left upper extremity was accomplished. INDICATION: Left shoulder pain and limited range of motion. CORRELATION: No prior studies are available for comparison. FINDINGS: There are glenohumeral and acromioclavicular joint degenerative changes. 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 There is moderate-sized shoulder joint effusion. There is some complexity to the joint fluid with questionable small rice bodies present which can be seen with rheumatoid. The biceps tendon is in a normal location within the bicipital groove. The subscapularis tendon of the rotator cuff appears intact. The supraspinatus and infraspinatus tendons appear to be intact. No tear or retraction is identified. No fluid is identified within the subacromial subdeltoid bursa. IMPRESSION: 1. Glenohumeral and acromioclavicular joint degenerative change and moderate joint effusion. There is some questionable complexity and rice bodies within the joint fluid which can be seen with rheumatoid arthritis. Clinical correlation is recommended. 2.No evidence of rotator cuff tear or retraction. Dictated by: Dictated on workstation # [id number]
== END ==
LOC: RAD 17:58
PROVIDERS: ATTEND Orthopaedic Surgery
DX: M19.012 Primary osteoarthritis, left shoulder (principal)
CPT/HCPCS: 73221

== ENCOUNTER → 2018-08-02 | Outpatient (CLI) | payer MEDICARE, OTHER ==
[~2018-08-02] MED LIST changes: -AMLO2.5T PO; +AMLO2.5T3 PO; -INDO50CA PO; +INDO50CA11 PO
--- NOTE | 2018-08-02 12:30 | Diagnostic Imaging Report ---
PROCEDURE: MRI lumbar spine. TECHNIQUE: Multiplanar, multisequence MRI of the lumbar spine was performed without contrast. INDICATION: History of lumbar fusion, lumbar pain, right buttock and thigh pain. COMPARISON: Comparison is limited to plain films performed on 05/15/2016. FINDINGS: An L4-L5 posterior and interbody fusion is aligned anatomically, and there is decompressive laminectomy. The thecal sac is widely patent at the operative levels. There is no fluid collection in the laminectomy bed. The alignment is normal. The lumbar body heights are maintained. Marrow signal intensity is normal. The conus appears normal. Nerves of the cauda equina demonstrate an unremarkable pattern of dispersal. The T12-L1, the L1-L2, and the L2-L3 levels and discs are all normal. The spinal canal, neural foramina, and lateral recesses at those levels are patent. L3-L4: Just above the fusion, there is some thickening of the ligamenta flava, prominence of the dorsal epidural fat, and hypertrophic facet arthrosis with mild generalized desiccated bulging disc material. The constellation of findings results in a relatively mild degree of central canal stenosis and mild degrees of right greater than left foraminal narrowing. L4-L5: Fusion again noted with no canal, foraminal, or recess stenosis. L5-S1: There is marked hypertrophic facet arthrosis with the facet joints fluid containing. There is buckled thickened elevated ligamenta flava. There is disc desiccation, loss of disc stature, disc bulge, and endplate osteophytes. The osteophyte disc material is greatest asymmetric to the right where it in conjunction with disc material results in a fidfdmuo-un-xdysqi degree of right-sided foraminal stenosis. There is mild right greater than left lateral recess stenosis owing to facet arthrosis below this disc without vincent compression of the descending S1 nerve roots. There is no significant canal stenosis. IMPRESSION: 1. Asymmetric osteophyte disc material results in a ppautdkc-st-ermvnd degree of right-sided L5-S1 foraminal stenosis with relatively mild right-sided lateral recess narrowing. 2. No evidence for postsurgical complication. Good appearance of the postoperative L4-L5 level. 3. Above the fusion at L3-L4, the constellation of findings results in a mild degree of canal stenosis with mild foraminal narrowing. 4. The remaining levels are normal. Dictated by: Dictated on workstation # [id number]
== END ==
LOC: RAD 09:58
PROVIDERS: ATTEND Internal Medicine
DX: M48.07 Spinal stenosis, lumbosacral region (principal); M25.78 Osteophyte, vertebrae; Z98.1 Arthrodesis status
CPT/HCPCS: 72148

== ENCOUNTER → 2020-07-02 | Outpatient (CLI) | payer MEDICARE, OTHER ==
[~2020-07-02] MED LIST changes: -AMLO2.5T3 PO; +AMLO2.5T4 PO; -INDO50CA11 PO; +INDO50CA82 PO; -LISI1TAB10 PO; +LISI1TAB26 PO
== END ==
LOC: LABNPT 06:29
PROVIDERS: ATTEND Internal Medicine
DX: Z20.828 Contact with and (suspected) exposure to other viral communicable diseases (principal)
CPT/HCPCS: 87635

== ENCOUNTER → 2020-09-18 | Outpatient (CLI) | payer MEDICARE, OTHER ==
--- NOTE | 2020-09-18 13:31 | Diagnostic Imaging Report ---
CLINICAL INDICATION: Patient with hypertension and TIA. Patient could not form sentences. Patient had episode that lasted 15 minutes 5 days ago. COMPARISON: Ultrasound of the carotid arteries dated 09/11/2016. EXAM: Real-time carotid Doppler duplex imaging is performed bilaterally. Peak systolic velocity, ICA/CCA peak systolic ratio, spectral analysis, and vascular morphology are studied. FINDINGS: ARTERY VELOCITY Right Left CCA 0.86 m/s 1.10 m/s ICA 0.86 m/s 1.03 m/s ECA 1.51 m/s 1.24 m/s ICA/CCA 1.0 0.9 VERT.ART Antegrade Antegrade There is mild bilateral carotid artery atherosclerotic disease. IMPRESSION: There is no grayscale or Doppler evidence of significant vascular stenosis. Dictated by: Dictated on workstation # [id number]
== END ==
LOC: RAD 12:45
PROVIDERS: ATTEND Internal Medicine
DX: G45.9 Transient cerebral ischemic attack, unspecified (principal); I10 Essential (primary) hypertension
CPT/HCPCS: 93880

== ENCOUNTER → 2021-02-20 | Outpatient (CLI) | payer MEDICARE, OTHER ==
--- NOTE | 2021-02-20 15:40 | Diagnostic Imaging Report ---
PROCEDURE: MRI lumbar spine without contrast. TECHNIQUE: Multiplanar, multisequence MRI of the lumbar spine was performed without contrast. INDICATION: Postop back pain. Radiculopathy. COMPARISON: 08/02/2018. FINDINGS: 5 lumbar type vertebral bodies are visualized with the last well-formed disc space designated L5-S1. No acute fracture or dislocation is seen in the lumbar spine. Since the prior exam there has been extension of posterior fusion changes to the L3 and S1 levels, now in total extending from the L3-S1 levels. Laminectomy is noted at L4 and L5. No focal osseous lesions are identified. The conus terminates at the L1 level. No masses are seen associated with the conus or nerve roots of the cauda equina. No epidural collections are identified. Multilevel degenerative changes are seen in the lumbar spine with disc bulges, facet hypertrophy, and buckling of the ligamentum flavum. T12-L1: No significant spinal canal or foraminal stenosis. L1-L2: No significant spinal canal or foraminal stenosis. L2-L3: Broad-based disc bulge, facet hypertrophy, and buckling of ligamentum flavum results in moderate to severe spinal canal stenosis and moderate to severe right and mild left foraminal stenosis. L3-L4: Facet hypertrophy and marginal osteophytes result in no significant spinal canal narrowing and mild right and no left foraminal narrowing. L4-L5: Marginal osteophytes and facet hypertrophy result in no significant spinal canal narrowing and no significant foraminal narrowing. L5-S1: Marginal osteophytes and facet hypertrophy result no significant spinal canal narrowing and mild to moderate bilateral foraminal narrowing. Paravertebral soft tissues are unremarkable. IMPRESSION: 1. No acute fracture or dislocation in the lumbar spine. 2. Multilevel degenerative changes in the lumbar spine, greatest at L2-L3. Findings of progressed since the prior exam from 2018. 3. Extension of posterior fusion changes from the L3-S1 levels. Laminectomy is again noted at L4 and L5. Dictated by: Dictated on workstation # [id number]
== END ==
LOC: RAD 10:15
PROVIDERS: ATTEND Orthopaedic Surgery Orthopaedic Surgery of the Spine
DX: M47.26 Other spondylosis with radiculopathy, lumbar region (principal); Z98.1 Arthrodesis status
CPT/HCPCS: 72148

== ENCOUNTER 2021-06-04 16:25 | Emergency (ER) | payer MEDICARE, OTHER ==
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
[2021-06-04 16:45] LABS: BASOPHILS # (AUTO) 0.1 10^3/uL (0.0-0.1); BASOPHILS % (AUTO) 1 % (0-10); EOSINOPHILS # (AUTO) 0.1 10^3/uL (0.0-0.3); EOSINOPHILS % (AUTO) 1 % (0-10); HEMATOCRIT 45 % (40-54); HEMOGLOBIN 15.1 g/dL (13.3-17.7); LYMPHOCYTES # (AUTO) 1.2 10^3/uL (1.0-4.0); LYMPHOCYTES % (AUTO) 17 % (12-44); MEAN CORPUSCULAR HEMOGLOBIN 32 pg (25-34); MEAN CORPUSCULAR HGB CONC 34 g/dL (32-36); MEAN CORPUSCULAR VOLUME 95 fL (80-99); MEAN PLATELET VOLUME 8.7 fL (9.0-12.2); MONOCYTES # (AUTO) 0.7 10^3/uL (0.0-1.0); MONOCYTES % (AUTO) 10 % (0-12); NEUTROPHILS # (AUTO) 4.9 10^3/uL (1.8-7.8); NEUTROPHILS % (AUTO) 71 % (42-75); PLATELET COUNT 358 10^3/uL (130-400); WHITE BLOOD COUNT 6.9 10^3/uL (4.3-11.0)
[2021-06-04 17:01] LABS: ALBUMIN 4.2 GM/DL (3.2-4.5); CHLORIDE 101 MMOL/L (98-107); POTASSIUM 3.5 MMOL/L (3.6-5.0); SODIUM 138 MMOL/L (135-145)
[2021-06-04 17:02] LABS: CALCIUM 9.6 MG/DL (8.5-10.1)
[2021-06-04 17:03] LABS: GLUCOSE 103 MG/DL (70-105); TOTAL PROTEIN 7.3 GM/DL (6.4-8.2)
[2021-06-04 17:04] LABS: CARBON DIOXIDE 27 MMOL/L (21-32)
[2021-06-04 17:05] LABS: BILIRUBIN,TOTAL 0.4 MG/DL (0.1-1.0)
[2021-06-04 17:07] LABS: ALKALINE PHOSPHATASE 55 U/L (40-136); CREATININE SERUM 0.84 MG/DL (0.60-1.30); GFR ESTIMATED 90
[2021-06-04 17:08] LABS: BUN/CREATININE RATIO 20
[2021-06-04 17:10] LABS: ALANINE AMINOTRANSFERASE 30 U/L (0-55); MAGNESIUM 1.9 MG/DL (1.6-2.4)
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
[2021-06-04] MEDS ORDERED: LACTATED RINGERS 1,000 ML IV SCH (17:30)
[2021-06-04 17:39] LABS: BILIRUBIN,URINE NEGATIVE (NEGATIVE); CLARITY,URINE CLEAR; COLOR,URINE YELLOW; GLUCOSE, URINE (UA) NEGATIVE (NEGATIVE); KETONES,URINE TRACE (NEGATIVE); LEUKOCYTE ESTERASE ,URINE NEGATIVE (NEGATIVE); NITRITE,URINE NEGATIVE (NEGATIVE); PH,URINE 6.5 (5-9); PROTEIN,URINE NEGATIVE (NEGATIVE)
[2021-06-04 17:46] LABS: BACTERIA,URINE NEGATIVE /HPF; RBC,URINE 0-2 /HPF; WBC,URINE 0-2 /HPF
[2021-06-04 17:52] LABS: AMPHETAMINE SCREEN, URINE NEGATIVE (NEGATIVE); BARBITURATE SCREEN URINE NEGATIVE (NEGATIVE); BENZODIAZEPINES SCREEN URINE NEGATIVE (NEGATIVE); CANNABINOID SCREEN, URINE NEGATIVE (NEGATIVE); COCAINE SCREEN URINE NEGATIVE (NEGATIVE); METHADONE STAT NEGATIVE (NEGATIVE); METHAMPHETAMINE SCREEN URINE S NEGATIVE (NEGATIVE); OPIATE SCREEN URINE NEGATIVE (NEGATIVE); OXYCODONE STAT NEGATIVE (NEGATIVE); PROPOXYPHENE STAT NEGATIVE (NEGATIVE); TRICYCLIC ANTIDEPRESSANTS SCRE NEGATIVE (NEGATIVE)
[2021-06-04] MEDS ORDERED: IOHEXOL 350 MG/ML 100 ML (OMNIPAQUE 350) VIAL IV ONE (18:00)
[2021-06-04] MEDS ORDERED: HOLD METFORMIN - RECEIVED CONTRAST 20 ML VIAL IV SCH (18:00)
[2021-06-04] MEDS ORDERED: NS 100 ML (IVPB) BAG IV ONE (18:00)
--- NOTE | 2021-06-04 18:10 | Diagnostic Imaging Report ---
EXAMINATION: CT angiography head and neck with and without contrast. TECHNIQUE: After intravenous administration of contrast, thin section axial CT angiography of the head and neck was performed. Source data was reformatted into 3D MIP projections. All CT scans use one or more of the following dose optimizing techniques: automated exposure control, MA and/or KvP adjustment based on patient size and exam type or iterative reconstruction. Any measurements of internal carotid artery stenosis are provided according to NASCET criteria. HISTORY: Expressive aphasia. COMPARISON: None available. FINDINGS: There are carotid bifurcation calcifications without hemodynamically significant stenosis. Vertebral arteries are normal without stenosis. Intracranial internal carotid arteries are normal. The middle cerebral arteries are normal. The posterior cerebral arteries are normal. The anterior cerebral arteries are normal. There is no large vessel occlusion. No aneurysm or vascular malformation is seen. The fagan-white matter differentiation is normal. No mass effect or midline shift. The ventricles are normal in size and configuration. Basilar cisterns are patent. There are no intra- or extra-axial fluid collections. There is no intracranial hemorrhage. The orbits are normal. Paranasal sinuses are normal. Mastoid air cells are clear. No soft tissue abnormality is seen. No osseus lesion or fracture is seen. No lymphadenopathy is seen in the neck. The muscles of the neck are normal. Fascial planes are preserved and the deep spaces of the neck are normal. Limited views of the superior thorax are unremarkable. No osseous lesion or fracture is seen. IMPRESSION: Normal vasculature in the head and neck without large vessel occlusion. Dictated by: Dictated on workstation # [id number]
[2021-06-04 18:42] VITALS: BP 152/88
== END 2021-06-04 18:40 | disposition home or self-care (01) ==
LOC: EDUNIT# 16:25 → ER 16:26
DX: S40.812A Abrasion of left upper arm, initial encounter (principal); G45.9 Transient cerebral ischemic attack, unspecified; I10 Essential (primary) hypertension; E78.00 Pure hypercholesterolemia, unspecified; Z79.82 Long term (current) use of aspirin; Z79.01 Long term (current) use of anticoagulants; Z79.899 Other long term (current) drug therapy; V89.2XXA Person injured in unspecified motor-vehicle accident, traffic, initial encounter
CPT/HCPCS: 70450; 70496; 70498; 71045; 72125; 80053; 80306; 81000; 83735; 84484; 85025; 93005; 99284; G0480; 36415; 80320

== ENCOUNTER 2021-07-28 15:00 | Outpatient (RCR) | payer MEDICARE, OTHER ==
[~2021-07-28 15:00] MED LIST changes: +CYCL10TA25 PO; -CYCL10TA9 PO; -LISI1TAB26 PO; +LISI1TAB48 PO
== END 2021-07-31 | disposition home or self-care (01) ==
PROVIDERS: ATTEND Internal Medicine
DX: M54.9 Dorsalgia, unspecified (principal); I10 Essential (primary) hypertension; Z98.1 Arthrodesis status; Z86.73 Personal history of transient ischemic attack (TIA), and cerebral infarction without residual deficits

== ENCOUNTER 2021-08-19 10:55 | Outpatient (RCR) | payer MEDICARE, OTHER | END 2021-08-29 | disposition home or self-care (01) | PROVIDERS: ATTEND Internal Medicine | DX: M54.50 Low back pain, unspecified (principal); I10 Essential (primary) hypertension; Z98.1 Arthrodesis status ==

== ENCOUNTER → 2021-11-12 | Outpatient (CLI) | payer MEDICARE, OTHER | LOC: RT 16:15 | PROVIDERS: ATTEND Internal Medicine | DX: Z01.818 Encounter for other preprocedural examination (principal); I10 Essential (primary) hypertension | CPT/HCPCS: 93005 ==

== ENCOUNTER → 2022-01-06 | Outpatient (CLI) | payer MEDICARE, OTHER ==
--- NOTE | 2022-01-06 14:26 | Diagnostic Imaging Report ---
INDICATION: Low back pain FINDINGS: 3 views of the lumbar column demonstrate normal alignment. There is no subluxation or fracture. Orthopedic hardware is well seated. No osseous lesion. IMPRESSION: Stable appearing extensive laminectomy and fusion. Dictated by: Dictated on workstation # [id number]
== END ==
LOC: RAD 12:00
PROVIDERS: ATTEND Internal Medicine
DX: M54.50 Low back pain, unspecified (principal); Z98.1 Arthrodesis status; Z98.890 Other specified postprocedural states
CPT/HCPCS: 72100

== ENCOUNTER → 2022-03-31 | Outpatient (CLI) | payer MEDICARE, OTHER ==
--- NOTE | 2022-03-31 17:38 | Diagnostic Imaging Report ---
INDICATION: Status post previous back surgery with hardware complication. Follow-up. COMPARISON: 01/06/2022 FINDINGS: Multiple frontal and lateral radiographic views of the lumbar spine were obtained. Patient is status post previous laminectomy and posterior fusion of L2-S1. Bilateral interpedicular screws appear well seated and are intact. Bilateral posterior fusion rods are also intact. Intervertebral disc spacers are present at the L3-L4 and L5-S1 levels and appear appropriately positioned. No unexpected radiopaque foreign bodies are seen. Static alignment of the lumbar spine is maintained. There is no significant anteroretrolisthesis. There is no evidence of jumped facets. Vertebral body heights are maintained. There is no acute fracture. Included small bowel loops are nondistended. Note is made of calcified aortic atherosclerosis. IMPRESSION: 1. Postoperative changes to the lumbar spine, as described above. No evidence of hardware compromise. 2. No new acute fracture or dislocation of the lumbar spine. Dictated by: Dictated on workstation # [id number]
== END ==
LOC: RAD 13:16
PROVIDERS: ATTEND Internal Medicine
DX: Z98.1 Arthrodesis status (principal); Z98.890 Other specified postprocedural states
CPT/HCPCS: 72100

== ENCOUNTER → 2022-04-30 | Outpatient (CLI) | payer MEDICARE, OTHER ==
--- NOTE | 2022-04-30 15:56 | Diagnostic Imaging Report ---
CLINICAL INDICATION: Patient with previous back surgery with hardware complication. EXAM: X-ray of the lumbar spine, multiple views. COMPARISON: X-ray of the lumbar spine dated 03/31/2022. FINDINGS: Again seen are postop changes with L2-S1 posterior lumbar fusion hardware with bilateral spinal rods and pedicle screws. Metallic interbody disk spacer seen at the L3-L4 and L5-S1 levels are again seen. There is no hardware complication. There is sclerosis of the bilateral sacroiliac joints again seen. Partially visualized right hip arthroplasty. IMPRESSION: Stable L2-S1 posterior lumbar fusion hardware with no complication. Dictated by: Dictated on workstation # [id number]
== END ==
LOC: RAD 14:34
PROVIDERS: ATTEND Internal Medicine
DX: Z98.1 Arthrodesis status (principal)
CPT/HCPCS: 72100